=== PATIENT | male | born 1985 | race African-American/Black ===

== ENCOUNTER 2016-04-27 09:05 | Emergency (ER) | payer SELFPAY ==
--- NOTE | 2016-04-27 10:06 | ER Document Report ---
ED General - General Chief Complaint: Pain All Over Stated Complaint: BODY PAIN Notes: Patient is complaining of his entire body being so her beginning yesterday. He specifically complains of pain in his hips, sides, back, and arms. When questioned, he says he does have some slight sore throat. Denies any significant cough or chest congestion. Denies vomiting or diarrhea. Denies UTI symptoms. Denies any fevers. Patient has been treated twice in the past 3 months for STD (Trichomonas). In January, because he had urethritis symptoms, but again in March because his sexual partner was testing positive for trichomonas. He [facility] days ago because his partner once again was testing positive even though this patient is asymptomatic. He was given 4 pills to take , probably Zithromax, but he says he has forgotten to take them and still has them in his car. TRAVEL OUTSIDE OF THE [place] IN LAST 30 DAYS: No - Related Data Allergies/Adverse Reactions: No Known Allergies Allergy (Verified 04/27/16 09:08) Home Medications: Current Home Medications No Home Medications 04/27/16 [History] Past Medical History - Social History Smoking Status: Current Every Day Smoker Chew tobacco use (# tins/day): No Frequency of alcohol use: Occasional Drug Abuse: Marijuana Family History: Reviewed & Not Pertinent Patient has suicidal ideation: No Patient has homicidal ideation: No Surgical Hx: Negative - Immunizations Hx Diphtheria, Pertussis, Tetanus Vaccination: Yes Review of Systems - Review of Systems Constitutional: denies: Fever EENT: Throat pain - Feels like it's "just starting". denies: Throat swelling, Dental problem Cardiovascular: denies: Chest pain Respiratory: denies: Cough, Short of breath, Wheezing Physical Exam - Vital signs Vitals: Temp Pulse Resp BP Pulse Ox 98.2 F 77 14 114/70 99 04/27/16 09:10 04/27/16 09:10 04/27/16 09:10 04/27/16 09:10 04/27/16 09:10 Interpretation: Normal - Notes Notes: PHYSICAL EXAMINATION: GENERAL: Well-appearing, in no acute distress. Afebrile. Looks well. HEAD: Atraumatic, normocephalic. ENT: oropharynx erythematous, but without exudates. Moist mucous membranes. Voice normal. NECK: Normal range of motion, supple. LUNGS: Breath sounds clear and equal bilaterally. HEART: Regular rate and rhythm without murmurs. ABDOMEN: Soft, nontender. No guarding or rebound. BACK: No tenderness throughout entire back. EXTREMITIES: Normal range of motion without pain. SKIN: Warm, dry, no rashes. Course - Re-evaluation Re-evalutation: 04/27/16 10:47 Rapid strep test is negative. - Vital Signs Vital signs: Temp Pulse Resp BP Pulse Ox 99.1 F 58 L 12 109/69 100 04/27/16 11:15 04/27/16 11:15 04/27/16 11:15 04/27/16 11:15 04/27/16 11:15 Discharge - Discharge Clinical Impression: Myalgia Condition: Stable Disposition: HOME, SELF-CARE Additional Instructions: Myalagia (Muscle Pain) Myalgia is pain in the muscles. We use the word myalgia to describe muscle pain where there's no history of injury, no known muscle disease, and the muscles are normal to examination. Myalgias can be a symptom of an acute illness , such as influenza, hepatitis, or any viral illness, especially with fever. Sometimes the muscle pain comes before any other symptoms. Myalgia can also be an early symptom of inflammatory muscle disease, such as lupus. If myalgia is accompanied by an acute illness that explains the muscle pain , then no further testing needs to be done. When there's no clear reason for the pain, tests may be done to see if there's an inflammatory or other disease of the muscles. The usual treatment for myalgias is anti-inflammatory medication, such as ibuprofen. Muscle aches may be soothed with a heating pad or hot compress. If muscles remain painful for more than a few days, you'll need testing and followup. Return if a muscle becomes swollen, red, or severely painful. Ibuprofen Ibuprofen is an excellent, safe drug for pain control. In addition, it has potent antiinflammatory effects which are beneficial, especially in the treatment of injuries, arthritis, or tendonitis. It's best to take ibuprofen with food. Persons with ulcer disease or allergy to aspirin should notify their physician of this before taking ibuprofen. Take the medication exactly as prescribed. Don't take additional doses unless instructed to do so by your doctor. If you develop wheezing, shortness of breath, hives, faintness, stomach pain, vomiting, or dark black stools, return for re-evaluation at once. USE OF ACETAMINOPHEN (Tylenol): Acetaminophen may be taken for pain relief or fever control. It's much safer than aspirin, offering a wider range of "safe" dosages. It is safe during . Some brand names are Tylenol, Panadol, Datril, Anacin 3, Tempra, and Liquiprin. Acetaminophen can be repeated every four hours. The following are maximum recommended dosages: WEIGHT Dose Drops Elixir Chewable( 80mg) (LBS.) drprs=droppers tsp=teaspoon >89 pounds or adults 650 mg to 900 mg Acetaminophen can be repeated every four hours. Maximum dose not to exceed 4000 mg a day. These maximum recommended dosages are slightly higher than the dosages written on the product container, but these dosages are very safe and below the toxic dosage for acetaminophen. FOLLOW-UP CARE: If you have been referred to a physician for follow-up care, call the physician s office for an appointment as you were instructed or within the next two days. If you experience worsening or a significant change in your symptoms, notify the physician immediately or return to the Emergency Department at any time for re-evaluation. Forms: Return to Work
[2016-04-27 11:18] VITALS: BP 109/69
== END 2016-04-27 11:19 | disposition home or self-care (01) ==
LOC: ER 09:05
DX: M79.1 Myalgia (principal); F17.200 Nicotine dependence, unspecified, uncomplicated
CPT/HCPCS: 87070; 87880; 99283

== ENCOUNTER 2016-09-01 12:45 | Emergency (ER) | payer SELFPAY ==
--- NOTE | 2016-09-01 13:08 | ER Document Report ---
ED Medical Screen (RME) - General Chief Complaint: Flank Pain Stated Complaint: RIGH SIDE PAIN Time Seen by Provider: 09/01/16 13:00 Notes: 31-year-old male who states a long history of some intermittent right abdominal pain. He states worse over the last 6 weeks. He states food makes it better. He denies any radiation. He states nausea without vomiting or fevers. Patient also states some mild dysuria and intermittent clear penile discharge. He also states some intermittent pain to the right testicle. He states it was last yesterday. TRAVEL OUTSIDE OF THE [place] IN LAST 30 DAYS: No - Related Data Allergies/Adverse Reactions: No Known Allergies Allergy (Verified 09/01/16 12:50) Past Medical History Renal/ Medical History: Denies: Hx Peritoneal Dialysis - Immunizations Hx Diphtheria, Pertussis, Tetanus Vaccination: Yes Physical Exam - Vital signs Vitals: Temp Pulse Resp BP Pulse Ox 98.0 F 52 L 16 123/70 100 09/01/16 12:47 09/01/16 12:47 09/01/16 12:47 09/01/16 12:47 09/01/16 12:47 Course - Vital Signs Vital signs: Temp Pulse Resp BP Pulse Ox 98.0 F 52 L 16 123/70 100 09/01/16 12:47 09/01/16 12:47 09/01/16 12:47 09/01/16 12:47 09/01/16 12:47
[2016-09-01 13:35] LABS: ABSOLUTE LYMPHOCYTES (AUTO) 1.8 10^3/uL (0.5-4.7); ABSOLUTE MONOCYTES (AUTO) 0.5 10^3/uL (0.1-1.4); ABSOLUTE NEUT (AUTO) 1.9 10^3/uL (1.7-8.2); EOSINOPHILS % (AUTO) 1.2 % (0-6); HEMATOCRIT 43.6 % (37.9-51.0); HEMOGLOBIN 14.7 g/dL (13.5-17.0); HGB HCT DIFFERENCE 0.5; LYMPHOCYTES % (AUTO) 41.6 % (13-45); MEAN CORPUSCULAR HEMOGLOBIN 30.3 pg (27.0-33.4); MEAN CORPUSCULAR HGB CONC 33.8 g/dL (32.0-36.0); MEAN CORPUSCULAR VOLUME 90 fl (80-97); RED BLOOD COUNT 4.87 10^6/uL (4.35-5.55); RED CELL DISTRIBUTION WIDTH 13.3 % (11.5-14.0); SEGMENTED NEUTROPHILS % (AUTO) 44.2 % (42-78); WHITE BLOOD COUNT 4.3 10^3/uL (4.0-10.5)
[2016-09-01 13:36] LABS: APPEARANCE,URINE CLEAR; BILIRUBIN,URINE NEGATIVE (NEGATIVE); GLUCOSE, URINE NEGATIVE (NEGATIVE); KETONES,URINE NEGATIVE (NEGATIVE); LEUKOCYTE ESTERASE,URINE NEGATIVE (NEGATIVE); NITRITE,URINE NEGATIVE (NEGATIVE); PROTEIN,URINE NEGATIVE (NEGATIVE); URINE SPECIFIC GRAVITY 1.016; UROBILINOGEN,URINE NEGATIVE mg/dL (<2.0)
[2016-09-01 13:50] LABS: ALANINE AMINOTRANSFERASE 37 U/L (21-72); ALKALINE PHOSPHATASE 55 U/L (38-126); ANION GAP 10 (5-19); ASPARTATE AMINO TRANSFERASE 32 U/L (17-59); BILIRUBIN,DIRECT 0.3 mg/dL (0.0-0.4); BILIRUBIN,TOTAL 1.1 mg/dL (0.2-1.3); BLOOD UREA NITROGEN 14 mg/dL (7-20); CALCIUM 9.6 mg/dL (8.4-10.2); CARBON DIOXIDE 27 mmol/L (22-30); CHLORIDE 104 mmol/L (98-107); CREATININE RESULT 0.84 mg/dL (0.52-1.25); GLUCOSE 90 mg/dL (75-110); LIPASE 88.7 U/L (23-300); POTASSIUM 5.1 mmol/L (3.6-5.0); SODIUM 140.7 mmol/L (137-145); TOTAL PROTEIN 8.4 g/dL (6.3-8.2)
--- NOTE | 2016-09-01 14:35 | RADIOLOGY REPORT (SQ) ---
EXAM DESCRIPTION: U/S SCROTUM W/DOPPLER COMPLETED DATE/TIME: 09/01/2016 2:23 pm REASON FOR STUDY: PIT testicular pain with dysuria COMPARISON: None. TECHNIQUE: Static and realtime orozco scale imaging of the scrotum and testes. Selected color Doppler and spectral images recorded to document blood flow. LIMITATIONS: None. FINDINGS: RIGHT: TESTICLE: Normal size. Normal echotexture. Normal blood flow. No mass. EPIDIDYMIS: Normal size. Well-circumscribed benign 7 mm epididymal cyst HYDROCELE OR VARICOCELE: No. HERNIA OR EXTRA-TESTICULAR MASS: No. OTHER: No other significant finding. LEFT: TESTICLE: Normal size. Normal echotexture. Normal blood flow. No mass. EPIDIDYMIS: Normal size. 1.1 cm epididymal cyst. HYDROCELE OR VARICOCELE: No. HERNIA OR EXTRA-TESTICULAR MASS: No. OTHER: No other significant finding. IMPRESSION: Bilateral epididymal cysts. Study is otherwise normal. TECHNICAL DOCUMENTATION: JOB ID: [id number] [employer]- All Rights Reserved
[2016-09-01 14:57] LABS: CHLAM PCR NOT DETECTED (NOT DETECT)
[2016-09-01] MEDS ORDERED: MAG HYDROX/AL HYDROX/SIMETH SUSP 30 ML UDCUP PO ONE (15:13)
[2016-09-01] MEDS ORDERED: METOCLOPRAMIDE HCL ORAL SOLN 10 MG/10 ML UDCUP PO ONE (15:13)
[2016-09-01] MEDS ORDERED: LIDOCAINE 2% VISCOUS SOLN 20 ML UDCUP PO ONE (15:13)
--- NOTE | 2016-09-01 15:13 | ER Document Report ---
ED GI/ - General Chief Complaint: Flank Pain Stated Complaint: RIGH SIDE PAIN Time Seen by Provider: 09/01/16 13:00 Mode of Arrival: Ambulatory Information source: Patient Notes: Patient is a 31-year-old male who presents to the ER today for right sided abdominal pain that he has had most of his life intermittently that started began approximately 3 days ago. Patient states that it does radiate down the right side of his abdomen and sometimes feels like it radiates into his testicle. He has been diagnosed with an ulcer before. He denies any fevers, chills, nausea, vomiting but does admit to loss of appetite with this. He states that eating food seems to make it better. TRAVEL OUTSIDE OF THE [place] IN LAST 30 DAYS: No - Related Data Allergies/Adverse Reactions: No Known Allergies Allergy (Verified 09/01/16 12:50) Past Medical History - General Information source: Patient - Social History Smoking Status: Never Smoker Family History: Reviewed & Not Pertinent Patient has suicidal ideation: No Patient has homicidal ideation: No Renal/ Medical History: Denies: Hx Peritoneal Dialysis - Immunizations Hx Diphtheria, Pertussis, Tetanus Vaccination: Yes Review of Systems - Review of Systems Constitutional: No symptoms reported EENT: No symptoms reported Cardiovascular: No symptoms reported Respiratory: No symptoms reported Gastrointestinal: See HPI Genitourinary: No symptoms reported Male Genitourinary: No symptoms reported Musculoskeletal: No symptoms reported Skin: No symptoms reported Hematologic/Lymphatic: No symptoms reported Neurological/Psychological: No symptoms reported Physical Exam - Vital signs Vitals: Temp Pulse Resp BP Pulse Ox 98.0 F 52 L 16 123/70 100 09/01/16 12:47 09/01/16 12:47 09/01/16 12:47 09/01/16 12:47 09/01/16 12:47 - Notes Notes: PHYSICAL EXAMINATION: GENERAL: Well-appearing and in no acute distress. HEAD: Atraumatic, normocephalic. EYES: Pupils equal round and reactive to light, extraocular movements intact, sclera anicteric, conjunctiva are normal. ENT: ear canals without erythema or foreign body, TMs pearly cottrell with good bony landmarks, nares patent, oropharynx clear without exudates. Moist mucous membranes. NECK: Normal range of motion, supple without lymphadenopathy LUNGS: CTAB and equal. No wheezes rales or rhonchi. HEART: Regular rate and rhythm without murmurs ABDOMEN: Soft, epigastric tenderness. No guarding, no rebound, no hernia noted upon coughing BACK: no vertebral tenderness, normal ROM GI/: no CVA tenderness EXTREMITIES: Normal range of motion, no pitting edema. No cyanosis. NEUROLOGICAL: Cranial nerves grossly intact. Normal sensory/motor exams. PSYCH: Normal mood, normal affect. SKIN: Warm, Dry, normal turgor, no rashes or lesions noted Course - Re-evaluation Re-evalutation: 09/01/16 16:05 scrotal ultrasound shows epididymal cysts, no acute pathology. Lab work is unremarkable today. Patient felt better after GI cocktail. I do believe this may be a stomach ulcer. I will send patient home with medication for this. - Vital Signs Vital signs: Temp Pulse Resp BP Pulse Ox 98.0 F 52 L 18 123/70 100 09/01/16 12:47 09/01/16 12:47 09/01/16 15:29 09/01/16 12:47 09/01/16 12:47 - Laboratory Result Diagrams: 09/01/16 13:16 09/01/16 13:16 Laboratory results interpreted by me: 09/01/16 13:16 Potassium 5.1 H Total Protein 8.4 H Discharge - Discharge Clinical Impression: Epigastric abdominal pain Condition: Stable Disposition: HOME, SELF-CARE Additional Instructions: Return immediately for any new or worsening symptoms. Follow up with primary care provider, call tomorrow to make followup appointment. Prescriptions: Omeprazole Magnesium [Prilosec Otc] 20 mg PO BID #40 tablet. Sucralfate [Carafate 1 gm Tablet] 1 gm PO ACHS #40 tablet Forms: Return to Work
[2016-09-01 16:45] VITALS: BP 101/70
== END 2016-09-01 16:38 | disposition home or self-care (01) ==
LOC: ER 12:45
DX: R10.13 Epigastric pain (principal); N50.3 Cyst of epididymis; R63.0 Anorexia
CPT/HCPCS: 99284; 36415; 83690; 85025; 80053; 81001; 87491; 87591; 76870; 93976; J3490

== ENCOUNTER 2018-02-16 19:09 | Emergency (ER) | payer SELFPAY ==
[2018-02-16 19:36] VITALS: BP 109/58
--- NOTE | 2018-02-16 20:52 | ER Document Report ---
HPI - HPI Patient complains to provider of: rash Pain Level: 0 Context: 32-year-old male presents to the emergency department for concern for scabies. He states he was cleaning out underneath his cousins bed and became concerned after he started itching a little bit on his dorsal right forearm and his medial right thigh. He denies anyone else in the house including the child to sleep in the bed with any similar symptoms. He denies fevers, chills. He denies any other systemic rash. - REPRODUCTIVE Reproductive: DENIES: : <WENDI MEDINA - Last Filed: 02/16/18 20:47> <MOOK RAYMUNDO - Last Filed: 02/17/18 20:34> - HPI Time Seen by Provider: 02/16/18 20:21 Past Medical History - General Information source: Patient - Social History Smoking Status: Current Every Day Smoker Frequency of alcohol use: None Family History: Reviewed & Not Pertinent Renal/ Medical History: Denies: Hx Peritoneal Dialysis - Immunizations Hx Diphtheria, Pertussis, Tetanus Vaccination: Yes <WENDI MEDINA - Last Filed: 02/16/18 20:47> Vertical Provider Document - INFECTION CONTROL TRAVEL OUTSIDE OF THE [place] IN LAST 30 DAYS: No - HEENT HEENT: Atraumatic, Normocephalic - NECK Neck: Normal Inspection, Supple - RESPIRATORY Respiratory: No Respiratory Distress - MUSCULOSKELETAL/EXTREMETIES Musculoskeletal/Extremeties: MAEW, FROM, Non-Tender - NEURO Level of Consciousness: Awake, Alert, Appropriate - DERM Integumentary: Warm, Dry Notes: Area on dorsal aspect of left arm that is scabbed with a scab scratched off. Skin is dry. Another similar area on medial aspect of right thigh. These 2 areas are sparse and there is no other evidence of systemic rash. There is no evidence of any burrowing in the webs between the digits of the fingers and toes. Patient complains of no other itching. There are no people in the same household that have similar symptoms. This most likely represents a contact dermatitis versus potential bites from dust mites. This is not an infectious process and the patient will be discharged home with instructions to apply Neosporin to the open wounds for couple of days and to use skin lotion for dry skin. <WENDI MEDINA - Last Filed: 02/16/18 20:47> Course - Vital Signs Vital signs: Temp Pulse Resp BP Pulse Ox 98.1 F 68 20 109/58 L 100 02/16/18 19:34 02/16/18 19:34 02/16/18 19:34 02/16/18 19:34 02/16/18 19:34 <WENDI MEDINA - Last Filed: 02/16/18 20:47> - Re-evaluation Re-evalutation: 02/17/18 20:33 I was personally available for consultation during this patient's worse. I did not personally evaluate the patient. - Vital Signs Vital signs: Temp Pulse Resp BP Pulse Ox 98.1 F 68 20 109/58 L 100 02/16/18 19:34 02/16/18 19:34 02/16/18 19:34 02/16/18 19:34 02/16/18 19:34 <MOOK RAYMUNDO - Last Filed: 02/17/18 20:34> Discharge <WENDI MEDINA - Last Filed: 02/16/18 20:47> <MOOK RAYMUNDO - Last Filed: 02/17/18 20:34> - Discharge Clinical Impression: Rash and nonspecific skin eruption Condition: Good Disposition: HOME, SELF-CARE Additional Instructions: He was seen in the emergency department this evening for a nonspecific rash. This rash is in no way consistent with scabies because of the location and the fact that no one else in the house urine has scabies including the child sleeps in the bed. It may very well that you could have gotten a bug bite from something like a dust mite or something else. Please stop scratching it as this will make it worse and could cause a secondary infection. He can put bacitracin over the open wounds for a couple of days. Also please use some body lotion of your choice, preferably unscented, as dry skin will make things worse and make your skin itchy. If you develop a rash all over your body, start seeing rash in the webs of your fingers or your toes, or near your buttocks please return to the emergency department for treatment.
== END 2018-02-16 20:50 | disposition home or self-care (01) ==
LOC: ER 19:09
DX: R21 Rash and other nonspecific skin eruption (principal); F17.200 Nicotine dependence, unspecified, uncomplicated
CPT/HCPCS: 99283